=== PATIENT | female | born 1985 | race Caucasian/White ===

== ENCOUNTER 2016-07-23 19:58 | Emergency (ER) | payer BC ==
[2016-07-23 20:42] VITALS: BP 132/77
--- NOTE | 2016-07-23 20:56 | EDM.PDOC ---
ED HPI ENT - General Chief Complaint: ENT Problem Stated Complaint: STREP Time Seen by Provider: 07/23/16 20:45 Source: Reports: Patient History Limitations: Reports: No limitations - History of Present Illness INITIAL COMMENTS - FREE TEXT/NARRATIVE: Sore throat which started on Saturday. Reports worsening until today when fever started to remain more constant. Took 1 dose of ibuprofen at around 2pm and also sudafed. Both were helpful but neither cured symptoms. [place] even worse this evening and father recommended evaluation. Reports at graduation on Saturday and another person complained of significant sore throat. Currently and has additional child in room. Timing/Duration: Reports: Getting worse Severity: severe Location: Reports: throat Quality: Reports: Ache, Sharp Improves with: Reports: None Worsens with: Reports: Eating Associated symptoms: Reports: headaches, fever/chills, loss of appetite Treatment(s) [employer]: Reports: NSAIDS - Related Data Allergies/ADRs: Allergies Allergy/AdvReac Type Severity Reaction Status Date / Time No Known Allergies Allergy Verified 07/23/16 20:37 Home Meds: Home Meds NK [No Known Home Meds] 07/23/16 [History] Past Medical History Gastrointestinal History: Reports: None HEEL DIPPER History: Reports: Musculoskeletal History: Reports: None Neurological History: Reports: None Psychiatric History: Reports: None Endocrine/Metabolic History: Reports: None Hematologic History: Reports: None Immunologic History: Reports: None Oncologic (Cancer) History: Reports: None Dermatologic History: Reports: None - Past Surgical History Female Surgical History: Reports: section Social & Family History - Tobacco Use Smoking Status *Q: Never Smoker - Caffeine Use Caffeine Use: Reports: Coffee - Recreational Drug Use Recreational Drug Use: No ED ROS ENT - Review of Systems Review Of Systems: ROS reveals no pertinent complaints other than HPI. ED EXAM, ENT - Physical Exam Exam: See Below Exam Limited By: No limitations General Appearance: alert, no apparent distress Ears: normal external exam, normal canal, normal TMs Nose: normal inspection Mouth/Throat: Tonsillar erythema, Tonsillar exudates Head: atraumatic, normocephalic Neck: supple, full range of motion, lymphadenopathy (R), lymphadenopathy (L) Respiratory/Chest: no respiratory distress, lungs clear, normal breath sounds Cardiovascular: tachycardia (regular rate) Neurological: alert, oriented, normal cognition, normal gait Psychiatric: normal affect, normal mood Skin: Warm, Intact, Other (flushed cheeks) Course - Vital Signs Last Recorded V/S: Last Vital Signs Temp 38.8 C H 07/23/16 20:41 Pulse 135 H 07/23/16 20:41 Resp 18 07/23/16 20:41 BP 132/77 07/23/16 20:41 Pulse Ox 96 07/23/16 20:41 - Orders/Labs/Meds Labs: Rapid strep test positive. Discussed with patient. - Re-Assessments/Exams Free Text/Narrative Re-Assessment/Exam: 07/23/16 21:03 Offered treatment for acute fever and headache. pt declined stating she had ibuprofen in her bag she would take. Departure - Departure Time of Disposition: 20:54 Disposition: Home, Self-Care 01 Condition: good Clinical Impression: Strep throat Fever Qualifiers: Fever type: due to other condition Qualified Code(s): R50.81 - Fever presenting with conditions classified elsewhere Referrals: PCP,None [Primary Care Provider] - Forms: ED Department Discharge Additional Instructions: 1. Start Pencillin 500mg BID for next 10 days. 2. Tylenol or ibuprofen as needed for sore throat symptoms. 3. Replace/sanitize toothbrush after 24 hours of antibiotics. 4. Strep throat is contagious for 24 hours after starting antibiotics. 5. Push fluids and rest. - Problem List & Annotations (1) Strep throat SNOMED Code(s): 56543316, 367674376 Code(s): J02.0 - STREPTOCOCCAL PHARYNGITIS Status: Acute Priority: High Current Visit: Yes (2) Fever SNOMED Code(s): 713711198 Code(s): R50.9 - FEVER, UNSPECIFIED Status: Acute Priority: High Current Visit: Yes Qualifiers: Fever type: due to other condition Qualified Code(s): R50.81 - Fever presenting with conditions classified elsewhere (3) Acute tonsillitis SNOMED Code(s): 80384596 Code(s): J03.90 - ACUTE TONSILLITIS, UNSPECIFIED Status: Acute Current Visit: Yes Qualifiers: Pharyngitis/tonsillitis etiology: streptococcus - Problem List Review Problem List Initiated/Reviewed/Updated: Yes
== END 2016-07-23 21:16 | disposition home or self-care (01) ==
LOC: JP.ED 19:58
DX: J02.0 Streptococcal pharyngitis (principal); R50.81 Fever presenting with conditions classified elsewhere; Z98.890 Other specified postprocedural states
CPT/HCPCS: 87430; 99284